=== PATIENT | female | born 1935 | race Caucasian/White ===

== ENCOUNTER 2018-11-04 09:55 | Inpatient (IN) | payer OTHER | END 2018-11-06 10:30 | disposition home or self-care (01) | LOC: TELE-CENTR 11-05 04:56 → ER 09:55 → TELE 13:07 → TELE-CENTR 16:45 | DX: I24.9 Acute ischemic heart disease, unspecified (principal); N39.0 Urinary tract infection, site not specified; I10 Essential (primary) hypertension; I70.0 Atherosclerosis of aorta ==